=== PATIENT | male | born 1980 | race Caucasian/White ===

== ENCOUNTER 2022-12-21 21:23 | Emergency (ER) | payer BC ==
[2022-12-21 21:40] VITALS: BP 145/90; PULSE 82; RESP 16; TEMP 97.8; BMI 25.1
[2022-12-21] MEDS ORDERED: ACETAMINOPHEN 500 MG TABLET (FP) PO ONE (21:41)
[2022-12-21] MEDS ORDERED: diphenhydrAMINE HCL 50 MG CAPSULE PO ONE (21:41)
[2022-12-21] MEDS ORDERED: FAMOTIDINE 10 MG TABLET PO ONE (21:41)
[2022-12-21] MEDS ORDERED: ACETAMINOPHEN 500 MG TABLET (FP) ONE (21:43)
[2022-12-21] MEDS ORDERED: diphenhydrAMINE HCL 50 MG CAPSULE ONE (21:43)
[2022-12-21] MEDS ORDERED: FAMOTIDINE 20 MG TABLET ONE (21:43)
== END 2022-12-21 22:09 | disposition home or self-care (01) ==
LOC: FER 21:23
DX: T78.3XXA Angioneurotic edema, initial encounter (principal)
CPT/HCPCS: 99283-25